=== PATIENT | female | born 1990 | race American Indian/Alaskan Native ===

== ENCOUNTER 2017-03-28 16:52 | Emergency (ER) | payer MEDICAID | END 2017-03-28 19:15 | disposition left against medical advice (07) | LOC: ED 16:52 | DX: N89.8 Other specified noninflammatory disorders of vagina (principal); Z53.21 Procedure and treatment not carried out due to patient leaving prior to being seen by health care provider ==

== ENCOUNTER 2017-05-21 08:17 | Emergency (ER) | payer MEDICAID ==
[2017-05-21 08:47] VITALS: BP 121/81
[2017-05-21 09:07] LABS: Bilirubin,Urine NEG (Negative); Blood,Urine NEG (Negative); Color,Urine Yellow (Yellow); HCG Qualitative,Urine Negative (Negative); Mucus,Urine 1+ /HPF; Protein,Urine <15 mg/dL mg/dL (Negative); Urobilinogen,Urine < 2.0 mg/dL (<2.0)
--- NOTE | 2017-05-21 09:59 | Emergency Department Report ---
HPI - General Chief Complaint: Urogenital-Female Time Seen by Provider: 05/21/17 09:38 - HPI HPI: 26-year-old female with no prior medical history presents to ED complaining of vaginal irritation times today. Patient states about 4 months ago she was diagnosed with bacterial vaginosis and was treated. Patient states last week she was seen by [facility] and had a complete testing done that came back negative. Patient states she's been using vaginal cleanse for the past 2-3 days and today noticed some irritation on the outer aspect. She denies vaginal discharge , odor, itching, lesions. ED Past Medical Hx - Past Medical History Previous Medical History?: Yes Hx Congestive Heart Failure: No Hx Diabetes: No Hx Headaches / Migraines: Yes Hx Asthma: No Hx COPD: No Additional medical history: Bacterial vaginosis - Surgical History Past Surgical History?: Yes Additional Surgical History: abortions x 3 - Social History Smoking Status: Former Smoker Substance Use Type: Alcohol, Marijuana, Non Opiate Pain, Other - Medications Home Medications: Home Medications Medication Instructions Recorded Confirmed Last Taken Type Cephalexin [Keflex] 500 mg PO Q12HR #14 cap 10/23/15 Unknown Rx hydrOXYzine PAMOATE [Vistaril] 25 mg PO Q6HR PRN #15 capsule 10/23/15 Unknown Rx ED Review of Systems ROS: Stated complaint: VAGINAL IRRITATION Other details as noted in HPI Constitutional: denies: chills, fever Eyes: denies: eye pain, eye discharge, vision change ENT: denies: ear pain, throat pain Respiratory: denies: cough, shortness of breath, wheezing Cardiovascular: denies: chest pain, palpitations Endocrine: no symptoms reported Gastrointestinal: denies: abdominal pain, nausea, diarrhea Genitourinary: denies: urgency, dysuria, discharge Musculoskeletal: denies: back pain, joint swelling, arthralgia Skin: denies: rash, lesions Neurological: denies: headache, weakness, paresthesias Psychiatric: denies: anxiety, depression Hematological/Lymphatic: denies: easy bleeding, easy bruising Physical Exam - Physical Exam Vital Signs: Vital Signs 05/21/17 08:42 Temperature 99.1 F Pulse Rate 78 Respiratory 18 Rate Blood Pressure 121/81 O2 Sat by Pulse 99 Oximetry Physical Exam: GENERAL: Alert and oriented x3, no apparent distress, Normal Gait, atraumatic. HEAD: Head is normocephalic and a-traumatic. EYES: Extra ocular muscles are intact. Pupils are equal, round, and reactive to light and accommodation. LUNGS: Symetrical with respiration, No wheezing, no rales or crackles, CTAB. HEART: S1, S2 present, regular rate and rhythm without murmur, no rubs, no gallops. Non tender to palpation ABDOMEN: No organomegaly was noted,Positive bowel sounds, soft, and non- distended. . Nontender to palpation on all Quadrants, NO CVA tenderness. GENITOURINARY: External genitalia without erythema, exudate or discharge. Vaginal vault is without discharge. Cervix is of normal color without lesion. Cervical os is closed. No bleeding noted. Uterus is noted to be of normal size and nontender. No cervical motion tenderness. No masses are palpated. The adnexa are without masses or tenderness. NEUROLOGIC: The patient is cooperative with no focal neurologic deficits. SKIN: Warm and dry, No lesions, No ulceration or induration present. ED Course Vital Signs 05/21/17 08:42 Temperature 99.1 F Pulse Rate 78 Respiratory 18 Rate Blood Pressure 121/81 O2 Sat by Pulse 99 Oximetry ED Medical Decision Making - Medical Decision Making 26-year-old female presents with vaginal irritation ED course: Pelvic exam was normal no abnormal findings I discussed this with the patient Wet prep, urinalysis and test, all negative I discussed the patient irritation is from the vaginal clearance that she is currently on. Discussed the patient and that this will pass after that claims is done and discussed with the patient to follow up with their [facility]ARD REPAIR TECHNICIAN I review [facility] REPAIR TECHNICIAN results from 05/13/2017 which patient had with her, all normal results no STDs no BV or yeast or HSV. Critical care attestation.: If time is entered above; I have spent that time in minutes in the direct care of this critically ill patient, excluding procedure time. ED Disposition Clinical Impression: Vaginal irritation Disposition: DC-01 TO HOME OR SELFCARE Is pt being admited?: No Does the pt Need Aspirin: No Condition: Stable Instructions: Vaginitis (ED) Additional Instructions: Make sure to follow up with the primary care physician as discussed. Take all your medications as you've been prescribed. If you have any worsening symptoms or develop new symptoms please return to ED immediately. Referrals: PRIMARY CARE, [Primary Care Provider] - 3-5 Days WILLIS MELENDEZ MD [Referring] - 3-5 Days [facility] [Outside] - 3-5 Days [facility] [Outside] - 3-5 Days Forms: Accompanied Note, Work/School Release Form(ED) Time of Disposition: 11:34
== END 2017-05-21 11:42 | disposition home or self-care (01) ==
LOC: ED 08:17
DX: N89.8 Other specified noninflammatory disorders of vagina (principal)
CPT/HCPCS: 81001; 81025; 87210; 87591

== ENCOUNTER 2017-06-03 07:35 | Emergency (ER) | payer MEDICAID ==
--- NOTE | 2017-06-03 12:19 | Emergency Department Report ---
Blank Doc - Documentation Documentation: Patient is a 26-year-old black female was recently treated for bacterial vaginosis but states that she's having vaginal irritation and swelling to the right labia. Patient will be moved to the treatment room for further evaluation.
--- NOTE | 2017-06-03 12:46 | Emergency Department Report ---
ED Female HPI - General Chief complaint: Allergic Reaction Stated complaint: ALLERGIC REACTION TO ANTIBIOTIC Time Seen by Provider: 06/03/17 12:19 Source: patient Mode of arrival: Ambulatory Limitations: No Limitations - History of Present Illness Initial comments: This is a 26 y.o. female that presents with vaginal irritation and rash inside left upper corner lips for 1 week. Patient reports going to [facility] 2 months ago and being diagnosed with BV. She was seen here last month and pelvic exam was normal. She noticed rash in right side of inner labia and left corner of upper lip. States both rash are not painful but there is some irritation similar to an itch. She is currently on menses that started yesterday. States right labia is burning constantly but non-tender to touch. Denies discharge, odor, swelling , redness, frequency, and urgency. MD Complaint: other (vaginal irriation/rash to right inner labia and rash to left corner of inner upper lip) -: week(s) (1) Location: labia (right inner labia) Radiation: non-radiating Severity: mild Severity scale (0 -10): 0 Quality: burning (constant burning) Consistency: constant Improves with: none Worsens with: none Are you Now?: No Last Menstrual Period: 06/02/17 EDC: 03/09/18 Associated Symptoms: denies other symptoms - Related Data Sexually active: Yes Previous Rx's Medication Instructions Recorded Last Taken Type Cephalexin [Keflex] 500 mg PO Q12HR #14 cap 10/23/15 Unknown Rx hydrOXYzine PAMOATE [Vistaril] 25 mg PO Q6HR PRN #15 capsule 10/23/15 Unknown Rx Valacyclovir HCl [Valtrex] 1,000 mg PO BID #20 tablet 06/03/17 Unknown Rx Allergies Allergy/AdvReac Type Severity Reaction Status Date / Time No Known Allergies Allergy Verified 10/23/15 07:36 ED Review of Systems ROS: Stated complaint: ALLERGIC REACTION TO ANTIBIOTIC Other details as noted in HPI Constitutional: denies: chills, fever Respiratory: denies: cough, shortness of breath, wheezing Cardiovascular: denies: chest pain, palpitations Gastrointestinal: denies: abdominal pain, nausea, diarrhea Genitourinary: other (rash to right inner labia). denies: urgency, dysuria, discharge Skin: rash (left upper lip, inner). denies: lesions Psychiatric: denies: anxiety, depression ED Past Medical Hx - Past Medical History Previous Medical History?: Yes Hx Congestive Heart Failure: No Hx Diabetes: No Hx Headaches / Migraines: Yes Hx Asthma: No Hx COPD: No Additional medical history: Bacterial vaginosis - Surgical History Past Surgical History?: Yes Additional Surgical History: abortions x 3 - Social History Smoking Status: Current Some Day Smoker Substance Use Type: Alcohol, Marijuana - Medications Home Medications: Home Medications Medication Instructions Recorded Confirmed Last Taken Type Cephalexin [Keflex] 500 mg PO Q12HR #14 cap 10/23/15 Unknown Rx hydrOXYzine PAMOATE [Vistaril] 25 mg PO Q6HR PRN #15 capsule 10/23/15 Unknown Rx Valacyclovir HCl [Valtrex] 1,000 mg PO BID #20 tablet 06/03/17 Unknown Rx ED Physical Exam - General Limitations: No Limitations General appearance: alert, in no apparent distress - Respiratory Respiratory exam: Present: normal lung sounds bilaterally. Absent: respiratory distress, wheezes, rales, rhonchi, stridor - Cardiovascular Cardiovascular Exam: Present: regular rate, normal rhythm, normal heart sounds. Absent: systolic murmur, diastolic murmur, rubs, gallop - GI/Abdominal GI/Abdominal exam: Present: soft, normal bowel sounds. Absent: distended, tenderness, guarding, rebound, rigid, organomegaly, mass - External exam: Present: lesions (multiple 2 mm vesicles on right labia, nontender). Absent: erythema, swelling, lacerations, ecchymosis, bleeding - Neurological Exam Neurological exam: Present: alert, oriented X3, normal gait - Psychiatric Psychiatric exam: Present: normal affect, normal mood - Skin Skin exam: Present: warm, dry, intact, normal color, rash (multiple 2-3 mm vesicles right upper lip, tender) ED Course Vital Signs 06/03/17 07:49 Temperature 98.8 F Pulse Rate 73 Respiratory 18 Rate Blood Pressure 124/81 O2 Sat by Pulse 99 Oximetry ED Medical Decision Making - Medical Decision Making This is a 26 y.o. female presents with rash to right labia and upper lip for 1 week. Patient was examined by me and Dr. Maldonado. Recent STD panel by [facility] 05/13 reviewed by me, all negative. They didn't test for HSV 1. Advised to f/u with T[facility]PERATOR or Health Department for labs. Emperically treated for HSV 1. Given valtrax 1000 mg po in ER. Discharged home in stable condition. Start valtrax 1000 mg po bid x 10 days. Discussed prevention options. F/U with PCP or Health Department. Critical care attestation.: If time is entered above; I have spent that time in minutes in the direct care of this critically ill patient, excluding procedure time. ED Disposition Clinical Impression: Exposure to STD, Rash of genital area, Rash on lips Disposition: DC- TO HOME OR SELFCARE Is pt being admited?: No Does the pt Need Aspirin: No Condition: Stable Instructions: Safe Sex (ED), Sexually Transmitted Diseases (ED), Oral Herpes Simplex Virus Infections (ED) Additional Instructions: Continue safe sexual intercourse. Follow up with Primary Care Provider or health department. Prescriptions: Valacyclovir HCl [Valtrex] 1,000 mg PO BID #20 tablet Referrals: JUDSON MELTON MD [Primary Care Provider] - 3-[address] [facility] [Outside] - 3-5 Days [facility] [Outside] - 3-5 Days [facility] [Outside] - 3-5 Days Forms: Work/School Release Form(ED) Time of Disposition: 12:57 Print Language: LUXEMBOURGER
[2017-06-03 13:26] VITALS: BP 116/75
== END 2017-06-03 13:52 | disposition home or self-care (01) ==
LOC: ED 07:35
DX: R21 Rash and other nonspecific skin eruption (principal); F17.200 Nicotine dependence, unspecified, uncomplicated; F12.10 Cannabis abuse, uncomplicated; G43.909 Migraine, unspecified, not intractable, without status migrainosus; Z20.2 Contact with and (suspected) exposure to infections with a predominantly sexual mode of transmission
CPT/HCPCS: 99282

== ENCOUNTER 2019-02-01 07:30 | Day surgery (SDC) | payer MEDICAID ==
[2019-01-25 13:31] LABS: Basophils % (Auto) 0.5 % (0.0-1.8); Eosinophils # (Auto) 0.1 K/mm3 (0.0-0.4); Eosinophils % (Auto) 0.9 % (0.0-4.3); Hematocrit 33.8 % (30.3-42.9); Hemoglobin 11.6 gm/dl (10.1-14.3); Lymphocytes # (Auto) 2.3 K/mm3 (1.2-5.4); Lymphocytes % (Auto) 34.2 % (13.4-35.0); Mean Corpuscular HGB Conc 34 % (30-34); Mean Corpuscular Volume 81 fl (79-97); Monocytes # (Auto) 0.3 K/mm3 (0.0-0.8); Monocytes % (Auto) 4.9 % (0.0-7.3); Platelet Count 304 K/mm3 (140-440); Red Blood Count 4.17 M/mm3 (3.65-5.03); Red Cell Distribution Width 14.9 % (13.2-15.2)
[2019-02-01] MEDS ORDERED: BUPIVACAINE/PF (0.5%) 5 MG/1 ML 30 ML VIAL INFILTRATI ONE ×2 (08:06→10:12)
--- NOTE | 2019-02-01 08:26 | Short Stay Summary ---
Short Stay Documentation Date of service: 02/01/19 Narrative H&P: Pt is a 28yo BF LMP 01/19/19 presents for surgical evaluation and treatment of a persistent right ovarian cyst. She complained of pelvic pain, and pelvic u/s showed the uterus to measure 9 x 7 x 5cm with a 6 x 6cm Right multiloculated cyst filled with thick fluid. She is now scheduled for a laparoscopic Right ovarian cystectomy with possible right Oophorectomy. - History Principal diagnosis: Right ovarian cyst H&P: obtained from office Past Medical History: No medical history Past Surgical History: No surgical history Social history: no significant social history, single - Allergies and Medications Current Medications: Allergies No Known Allergies Allergy (Verified 01/25/19 09:19) Home Medications Medication Instructions Recorded Confirmed Last Taken Type Cholecalciferol (Vitamin D3) 5,000 unit PO Q72H 01/25/19 01/25/19 Unknown History [Vitamin D3] Active Medications Cefazolin Sodium (Ancef/Sterile Water 2 Gm/20 Ml) 2 gm in 20 mls @ 80 mls/hr IV PREOP NR; Protocol - Physical exam General appearance: no acute distress Integumentary: no rash HEENT: Atraumatic Lungs: Clear to auscultation Heart: Regular rate Gastrointestinal: normal Female Genitourinary: deferred Rectal Exam: deferred Extremities: no ischemia, No edema Neurological: Normal gait, Normal speech - Brief post op/procedure progress note Date of procedure: 02/01/19 Pre-op diagnosis: 1. Pelvic pain 2. Right ovarian cyst Post-op diagnosis: same Procedure: Laparoscopic Right salpingoOophorectomy Anesthesia: GETA Findings: An enlarged uterus with normal left fallopian tube and ovary. The right ovary was multicyctic and spilled chocolate-colored fluid, consistent with an endometrioma, and a right hydrosalpinx adherent to the pelvic cul-de-sac. The appendix appeared to be normal. Surgeon: AMIE GRIFFIN Estimated blood loss: 50-100ml Pathology: list (Right fallopian tube and ovary) Specimen disposition: to lab Condition: stable - Hospital course Hospital course: Unremarkable. - Disposition Condition at discharge: Good Disposition: DC-01 TO HOME OR SELFCARE - Discharge Diagnoses (1) Pelvic pain Status: Resolved (2) Right ovarian cyst Status: Resolved (3) Endometrioma of ovary Status: Resolved Short Stay Discharge Plan Activity: no restrictions Diet: regular Wound: open to air, keep clean and dry Follow up with: PRIMARY CARE, [Primary Care Provider] - 7 Days AMIE GRIFFIN MD [Staff Physician] - 14 Days Prescriptions: HYDROcodone/APAP 5-325 [[place] 5/325] 1 each PO Q6HR PRN #20 tablet PRN Reason: Pain
[2019-02-01] MEDS ORDERED: ONDANSETRON 4 MG/2 ML INJ IV PRN (08:33)
[2019-02-01] MEDS ORDERED: fentaNYL 100 MCG/2 ML INJ IV PRN (08:33)
--- NOTE | 2019-02-01 08:34 | Anesthesia Day of Surgery ---
Anesthesia Day of Surgery - Day of Surgery Patient Examined: Yes Patient H&P Reviewed: Yes Patient is NPO: Yes
--- NOTE | 2019-02-01 08:38 | Anesthesia Consultation ---
Anesthesia Consult and Med Hx Date of service: 02/01/19 - Airway Anesthetic Teeth Evaluation: Chipped (Braces; Missing band left upper and bare wire end sticking out) ROM Head & Neck: Adequate Mental/Hyoid Distance: Adequate Mallampati Class: Class I Intubation Access Assessment: Good - Pre-Operative Health Status ASA Pre-Surgery Classification: ASA1 Proposed Anesthetic Plan: General - Pulmonary Hx Smoking: Yes (SINCE AGE 17; QUIT 2016) - Central Nervous System Hx Psychiatric Problems: No - Endocrine Hx End Stage Renal Disease: No - Hematic Hx Anemia: Yes - Other Systems Hx Alcohol Use: Yes Hx Substance Use: Yes (MARIJUANA (NOT CURRENT)) - Additional Comments Anesthesia Medical History Comments: Advised pt risk of injury to cheek with the bare braces wire
[2019-02-01] MEDS ORDERED: LACTATED RINGERS 1,000 ML IV SCH (09:00)
[2019-02-01] MEDS ORDERED: MIDAZOLAM 2 MG/2 ML INJ IV NR (09:00)
[2019-02-01] MEDS ORDERED: ceFAZolin/Water 2 GM/20 ML 2 GM/20 ML SYRINGE IV NR (09:00)
[2019-02-01] MEDS ORDERED: dexAMETHasone 20 MG/5 ML VIAL ONE (09:28)
[2019-02-01] MEDS ORDERED: ONDANSETRON 4 MG/2 ML INJ ONE (09:28)
[2019-02-01] MEDS ORDERED: GLYCOPYRROLATE 0.4 MG/2 ML INJ ONE (09:28)
[2019-02-01] MEDS ORDERED: NEOSTIGMINE 10MG/10 ML INJ MDV ONE (09:28)
[2019-02-01] MEDS ORDERED: fentaNYL 100 MCG/2 ML INJ ONE (09:28)
[2019-02-01] MEDS ORDERED: ROCURONIUM 50 MG/5 ML INJ IV ONE (09:28)
[2019-02-01] MEDS ORDERED: LIDOCAINE MPF (2%) 20 MG/1 ML VIAL 5 ML ONE (09:28)
[2019-02-01] MEDS ORDERED: PROPOFOL 200 MG/20 ML VIAL IV ONE (09:29)
[2019-02-01] MEDS ORDERED: SODIUM CHLORIDE 0.9% IRR 1,000 ML BOTTLE IR ONE (10:12)
[2019-02-01] MEDS ORDERED: SODIUM CHLORIDE 0.9% IRRIG SOLN 2000 ML IR ONE (10:30)
--- NOTE | 2019-02-01 11:17 | Operative Report ---
Operative Report Operative Report: Date of procedure: 02/01/2019 Pre-operative diagnosis: 1. Pelvic pain 2. Right ovarian cyst Post-operative diagnosis: Same with Right ovarian cyst - suspected endometrioma Procedure name(s): Laparoscopic Right SalpingoOophorectomy Surgeon: Dr. Estrada Olmos Supervisor Paper Machine: None Anesthesia: Gen. endotracheal intubation EBL: Minimal less than 50mls Findings: An enlarged uterus with normal left fallopian tube and ovary. The right ovary was large and multicystic, and spilled chocolate-colored fluid consistent with an Endometrioma, and a Right hydrosalpinx adherent to the pelvic cul-de-sac. The appendix appeared to be normal. Procedure: After the patient was correctly identified, she was prepped and draped in the usual sterile fashion and placed in the dorsolithotomy position. Next the bladder was emptied using a Latex-free Weeks catheter, and the speculum was placed in the vaginal vault. The anterior lip of the cervix was grasped using single-tooth tenaculum, and the uterine manipulator was then placed. The tenaculum and speculum were then removed. Attention was then turned to the abdomen where a periumbilical incision was made using the skin knife, and the Optiview trocar was inserted under direct visualization. After adequate amount of abdominal insufflation, visualization of the pelvic organs found the uterus to be enlarged, with normal left fallopian tube and ovary. The right ovary was enlarged and multicystic, and the right fallopian tube showed to be a hydrosalpinx. A suprapubic and a right lateral incision was made through which 5 mm trochars were placed in order to aid in manipulation of the pelvic organs. The right ovarian cyst included the right ovary, and the right hydrosalpinx was adherent to the pelvic cul-de-sac. In the process of dissecting the ovarian cyst, it leaked chocolate-colored fluid consistent with an endometrioma. The right proximal fallopian tube was clamped, cauterized and cut, the right utero- ovarian ligament was grasped, cauterized and cut using the Tripolar cautery, until the multicystic ovarian mass was released from the right ovarian fossa. The multicystic mass was placed in an Endopouch and was removed in the Endopouch and sent to pathology. Copious amounts of irrigation was performed. The right salpingo-oophorectomy site was made hemostatic using cauterization, and the Tisseel Sealant was sprayed across the right ovarian fossa site and excellent hemostasis was assured. At this point the procedure was considered complete. All instruments were removed from the abdomen. The abdomen was deflated, and the periumbilical incision was closed using 0 Vicryl suture in a [id number] configuration on the fascia followed by 4-O Monocryl suture in a sub-cuticular fashion on the skin. The suprapubic and right lateral incisions were closed in similar fashion. Each incision was infiltrated using 0.5% Marcaine Solution. The uterine manipulator was removed. The Weeks catheter also removed. The patient tolerated the procedure well and was transferred to recovery in stable condition.
[2019-02-01] MEDS ORDERED: HYDROcodone/ACETAMINOPHEN 5-325 MG TAB ONE (11:23)
[2019-02-01] MEDS ORDERED: MEPERIDINE 25 MG/1 ML INJ ONE (11:24)
[2019-02-01] MEDS ORDERED: HYDROmorphone 1 MG/1 ML INJ ONE (11:24)
[2019-02-01] MEDS ORDERED: HYDROmorphone 1 MG/1 ML INJ IV PRN (11:32)
[2019-02-01] MEDS ORDERED: MEPERIDINE 25 MG/1 ML INJ IV PRN (11:32)
[2019-02-01] MEDS ORDERED: HYDROcodone/ACETAMINOPHEN 5-325 MG TAB PO PRN (11:32)
--- NOTE | 2019-02-01 15:53 | Post Anesthesia Evaluation ---
- Post Anesthesia Evaluation Patient Participated: Yes Airway Patent: Yes Stable Respiratory Function: Yes Nausea/Vomiting: No Temp > 96.8F: Yes Pain Manageable: Yes Adequeate Hydration: Yes Anesthesia Complications: No Block Receding Appropriately: Not Applicable Patient on Ventilator: No
[2019-02-01 19:08] VITALS: BP 116/68
== END 2019-02-01 07:31 | disposition home or self-care (01) ==
LOC: OR 07:30
PROVIDERS: ATTEND Obstetrics & Gynecology
DX: N83.201 Unspecified ovarian cyst, right side (principal); R10.2 Pelvic and perineal pain; N80.8 Other endometriosis; N83.8 Other noninflammatory disorders of ovary, fallopian tube and broad ligament; G43.909 Migraine, unspecified, not intractable, without status migrainosus; Z79.899 Other long term (current) drug therapy; Z87.891 Personal history of nicotine dependence; Z72.89 Other problems related to lifestyle; Z98.890 Other specified postprocedural states; Z80.3 Family history of malignant neoplasm of breast; Z86.2 Personal history of diseases of the blood and blood-forming organs and certain disorders involving the immune mechanism
CPT/HCPCS: 36415; 58661; 81025; 85025; 88305; A4217; C1765; C9250; J0690; J1100; J1170; J2175; J2250; J2405; J2704; J2710; J3010; J7120